=== PATIENT | male | born 1960 | race Caucasian/White ===

== ENCOUNTER 2020-07-13 10:33 | Emergency (ER) | payer SELFPAY ==
[2020-07-13 10:42] VITALS: BP 158/92; PULSE 79; RESP 20; TEMP 36.6; O2SAT 100
--- NOTE | 2020-07-13 12:18 | ED.GENADULT ---
HPI - General Adult General Chief complaint: Skin/Abscess/Foreign Body Stated complaint: Rash in Groin Time Seen by Provider: 07/13/20 12:18 Source: patient and RN notes reviewed Mode of arrival: ambulatory Limitations: no limitations History of Present Illness HPI narrative: 59-year-old male presents with complaints of left groin red, raised, and itching rash for the past 2-3 months. Michele reports he camps a lot and used Lotrimin cream with some relief. Denies new changes in personal hygiene products or laundry detergent. No new foods or medications. No swelling, bleeding, or drainage. No significant genital pain. No genital discharge.? No concerns for STDs. Michele believes exacerbating factors consists of not showering when camping. Denies hematuria or vaginal bleeding. No flank pain. Denies nausea, vomiting, and abdominal pain. Tolerating po intake well. Denies fever, headaches, facial swelling, or tongue swelling. Remains active. The patient reports he have not been diagnosed with COVID-19. The patient reports he is not waiting for the results of a COVID-19 lab test. The patient reports he do not have chills, weakness, or fatigue. The patient reports he do not have a new or worsening cough or shortness of breath. Denies chest pain. The patient reports he do not have any rhinorrhea, congestion, loss of taste or smell, sore throat, nausea, vomiting, abdominal pain, and diarrhea. Recent traveling to [place]. Denies concerns for COVID-19 or exposures. At this time, patient is not suspected of having COVID-19. Some parts of this dictation were generated by voice recognition software and may contain typographical and/or grammatical inaccuracies. Related Data Home Medications Medication Instructions Recorded Confirmed hydrochlorothiazide 25 mg PO DAILY 07/13/20 07/13/20 Allergies Allergy/AdvReac Type Severity Reaction Status Date / Time No Known Allergies Allergy Verified 07/13/20 10:54 Review of Systems Review of Systems: Narrative: CONSTITUTIONAL: Denies fever, chills, sweats. EYES: Denies visual changes, redness, discharge. ENT: Denies rhinorrhea, congestion, sore throat, otalgia. CARDIOVASCULAR: Denies chest pain, palpitations, edema. RESPIRATORY: Denies dyspnea, wheezing, cough. GASTROINTESTINAL: Denies abdominal pain, nausea, vomiting, diarrhea. GENITOURINARY: Denies dysuria, hematuria, abnormal discharge. SKIN: Complains of left groin red, raised, and itching rash. Denies drainage. MUSCULOSKELETAL: Denies acute back pain, joint pain, or myalgia. NEUROLOGIC: Denies numbness or focal weakness. PSYCHIATRIC: Denies anxiety or depression. All other systems reviewed & are unremarkable except as noted in HPI and below. [facility] Past Medical History Medical History (Updated 07/14/20 @ 00:01 by Tam Sethi) Hypertension Surgical History Surgical History (Updated 07/13/20 @ 12:30 by MICKY Orosco) History of vasectomy Hx of sinus surgery Family History Family History (Updated 07/13/20 @ 12:31 by MICKY Orosco) Father , at age of 52 Acute myocardial infarction Malaria Smoker in home Heart disease Mother , of old age of 93 Old age Social History Social History (Updated 07/13/20 @ 12:32 by MICKY Orosco) Smoking status: Never smoker Tobacco type: cigarettes Second hand tobacco smoke exposure: Yes (Spouse smokes) Alcohol intake: current Substance use: never Living arrangements: with family Occupation/Education: occupation Gender identity (if verbalized by the patient): Male Sexual Orientation (if Verbalized by the Patient): Straight or Heterosexual Comments At time of signature, agree with nurse past medical, surgical, social, and family history. There is no relevant family history pertinent to the presenting complaint. Exam Narrative: Exam Narrative: GENERAL: This is a well-nourished, well-deve
== END 2020-07-13 12:40 | disposition home or self-care (01) ==
PROVIDERS: Emergency Provider Nurse Practitioner Family; PCP Internal Medicine
DX: B35.6 Tinea cruris (principal); I10 Essential (primary) hypertension; Z98.84 Bariatric surgery status
CPT/HCPCS: 99213; G0463